=== PATIENT | male | born 1980 | race Caucasian/White ===

== ENCOUNTER 2017-07-31 05:07 | Emergency (ER) | payer BC, OTHER ==
[2017-07-31 05:14] VITALS: BP 178/99
--- NOTE | 2017-07-31 05:26 | EDM.PDOC ---
ED HPI GENERAL MEDICAL PROBLEM - General Chief Complaint: Upper Extremity Injury/Pain Stated Complaint: hand injury Time Seen by Provider: 07/31/17 05:16 Source of Information: Reports: Patient History Limitations: Reports: No Limitations - History of Present Illness INITIAL COMMENTS - FREE TEXT/NARRATIVE: The patient states that he was using a hand-held drill at work, when the drill caught, causing the drill to spin around, crushing the patient's left thumb between the drill and a steel wall, around 03:00 tonight. The patient presents with pain to the tip of his left thumb. He is otherwise uninjured. He denies prior left thumb injury. The patient does not have a PCP. Left 1-Thumb Pain Score (Numeric/FACES): 8 - Related Data Allergies Allergy/AdvReac Type Severity Reaction Status Date / Time Penicillins Allergy Anaphylactic Verified 07/31/17 05:12 Shock Home Meds: Home Meds . [No Known Home Meds] 03/11/15 [History] Past Medical History - Infectious Disease History Infectious Disease History: Reports: Chicken Pox - Past Surgical History HEENT Surgical History: Reports: Oral Surgery ([place] teeth extraction), Tonsillectomy Social & Family History - Tobacco Use Smoking Status *Q: Former Smoker Years of Tobacco use: 13 Packs/Tins Daily: 1 - Alcohol Use Alcohol Use History: Yes Days Per Week of Alcohol Use: 2 Number of Drinks Per Day: 10 Total Drinks Per Week: 20 Alcohol Use Frequency: Binges - Recreational Drug Use Recreational Drug Use: No - Living Situation & Occupation Living situation: Reports: Single, with Significant Other (Girlfriend), with Family (Daughter, stepdaughter) 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 ED EXAM, GENERAL - Physical Exam Exam: See Below Exam Limited By: No Limitations General Appearance: Alert, WD/WN, No Apparent Distress Extremities: Other (There is mild swelling to the distal phalanx of the left thumb, when compared to the right. Punctate subungual hematoma at the tip of the nail. There is hyperesthesia to the thumb pad, and generalized tenderness to the distal phalanx. Vascular status of the left thumb is intact.) Course - Vital Signs Last Recorded V/S: Last Vital Signs Temp 36.9 C 07/31/17 05:12 Pulse 87 07/31/17 05:12 Resp 18 07/31/17 05:12 BP 178/99 H 07/31/17 05:12 Pulse Ox 98 07/31/17 05:12 - Orders/Labs/Meds Orders: Active Orders 24 hr Category Date Time Status Fingers Thumb Lt FA [CR] Stat Exams 07/31/17 05:21 Taken - Re-Assessments/Exams Free Text/Narrative Re-Assessment/Exam: 07/31/17 05:26 The patient states that he drove himself to the ED. He was offered ibuprofen, but declined. 07/31/17 05:41 3-view radiographs of the left thumb appear to be normal. No fracture or dislocation identified. Formal read per the Radiologist pending. Departure - Departure Time of Disposition: 05:45 Disposition: Home, Self-Care 01 Condition: Good Clinical Impression: Contusion of left thumb - Discharge Information Referrals: PCP,None [Primary Care Provider] - Forms: ED Department Discharge Additional Instructions: You were seen in the emergency room after your left thumb was crushed at work. Workup in the ER included x-rays of your left thumb, which returned normal. Your thumb is not broken. We recommend that you take [id number] ibuprofen, 2-3 tablets (400-600 mg) every 8 hours, with food, as needed for discomfort. We also recommend that you apply an ice pack to the end of your thumb as much as possible over the next 2 days, to help minimize swelling. If any other problems, please do not hesitate to return to the ER. - My Orders Last 24 Hours: My Active Orders 07/31/17 05:21 Fingers Thumb Lt FA [CR] Stat - Assessment/Plan Last 24 Hours: My Active Orders 07/31/17 05:21 Fingers Thumb Lt FA [CR] Stat
--- NOTE | 2017-07-31 06:54 | CR ---
Left thumb: 3 views of the left thumb were obtained. Comparison: No prior study. Joint spaces are preserved. No fracture, dislocation or other bony abnormality is seen. Impression: 1. No abnormality is seen on left thumb study. Diagnostic code #1
== END 2017-07-31 05:53 | disposition home or self-care (01) ==
LOC: JD.ED 05:07
DX: S60.012A Contusion of left thumb without damage to nail, initial encounter (principal); Z88.0 Allergy status to penicillin; Z87.891 Personal history of nicotine dependence; W23.1XXA Caught, crushed, jammed, or pinched between stationary objects, initial encounter
CPT/HCPCS: 73140-26-FA; 73140-FA; 99283

== ENCOUNTER 2017-10-11 19:37 | Emergency (ER) | payer BC, OTHER ==
--- NOTE | 2017-10-11 19:46 | EDM.PDOC ---
ED HPI GENERAL MEDICAL PROBLEM - General Chief Complaint: Lower Extremity Injury/Pain Stated Complaint: RIGHT KNEE SWOLLEN HARD TIME MOVING LEG Time Seen by Provider: 10/11/17 19:45 - History of Present Illness INITIAL COMMENTS - FREE TEXT/NARRATIVE: 37-year-old male presents emergency room with worsening right knee pain. This pain started earlier today progressively getting worse requests of the right front of his knee. He has increased swelling there a lot of this is been present for quite some time but usually doesn't bother he's taken 800 mg of ibuprofen without any relief. Patient denies any recent trauma to the area he has not skinned his knee he has not bumped his knee. Right Knee Pain Score (Numeric/FACES): 10 - Related Data Allergies Allergy/AdvReac Type Severity Reaction Status Date / Time Penicillins Allergy Anaphylactic Verified 07/31/17 05:12 Shock Home Meds: Home Meds . 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[employer]) Review of Systems - Review of Systems Review Of Systems: See Below Constitutional: Reports: No Symptoms Eyes: Reports: No Symptoms Respiratory: Reports: No Symptoms Cardiovascular: Reports: No Symptoms GI/Abdominal: Reports: No Symptoms Genitourinary: Reports: No Symptoms Musculoskeletal: Reports: No Symptoms ED EXAM, GENERAL - Physical Exam Exam: See Below Exam Limited By: No Limitations General Appearance: Alert, No Apparent Distress Head: Atraumatic, Normocephalic Neck: Normal Inspection, Supple, Non-Tender, Full Range of Motion Respiratory/Chest: No Respiratory Distress, Lungs Clear, Normal Breath Sounds, No Accessory Muscle Use, Chest Non-Tender Cardiovascular: Normal Peripheral Pulses GI/Abdominal: Normal Bowel Sounds, Soft, Non-Tender, No Organomegaly, No Distention, No Abnormal Bruit, No Mass Extremities: Other (Examination reveals some swelling over the anterior tuberosity and up to the patella on the right knee there is no redness warmth associated with this is tender to palpation. ACL MCL and LCL appear to be intact there is no evidence of meniscal entrapment patient has marked tenderness around the bursa.) Course - Vital Signs Last Recorded V/S: Last Vital Signs Temp 37.2 C 10/11/17 19:48 Pulse 70 10/11/17 19:48 Resp 20 10/11/17 19:48 BP 154/108 H 10/11/17 19:48 Pulse Ox 98 10/11/17 19:48 - Orders/Labs/Meds Orders: Active Orders 24 hr Category Date Time Status Knee Min 4V Rt [CR] Stat Exams 10/11/17 19:53 Taken - Re-Assessments/Exams Free Text/Narrative Re-Assessment/Exam: 10/11/17 21:04 Patient examined acute changes on his x-ray he has some degenerative calcifications within the bursa. At this point the patient's continues nonsteroidals to be started on Lyles 08/06/24 #20 one or 2 every 6 hours as needed for pain he is first on the precautions of using this medication he is advised to follow-up with orthopedics. Departure - Departure Time of Disposition: 21:04 Disposition: Home, Self-Care 01 Clinical Impression: Prepatellar bursitis - Discharge Information Referrals: PCP,None [Primary Care Provider] - Myron Suarez MD [Physician] - Forms: ED Department Discharge Additional Instructions: Return to the emergency room with any questions problems worsening symptoms. Continue take the ibuprofen. Use the hydrocodone only as needed for more severe pain allow 12 hours after using this before driving or returning to work. Follow-up with Dr. Suarez, orthopedic surgeon - My Orders Last 24 Hours: My Active Orders 10/11/17 19:53 Knee Min 4V Rt [CR] Stat - Assessment/Plan Last 24 Hours: My Active Orders 10/11/17 19:53 Knee Min 4V Rt [CR] Stat
[2017-10-11 19:50] VITALS: BP 154/108
--- NOTE | 2017-10-12 15:29 | CR ---
Right knee: Four portable views of the right knee were obtained. Comparison: No prior knee exam. Bony densities are noted off the anterior tibial tuberosity which appear to be old. Mild soft tissue swelling is seen around the patellar ligament. No joint effusion is seen. Medial and lateral joint spaces are preserved in height. No acute bony abnormality is seen. Impression: 1. Old bony densities off the anterior tibial tuberosity. 2. Soft tissue swelling around the patellar ligament most likely due to patellar tendinitis if there are no acute symptoms to this area. Diagnostic code #3 Agree with preliminary report issued by [facility] ([facility] preliminary report dictated on 10/11/17, 9:22 PM Central Time)
== END 2017-10-11 21:12 | disposition home or self-care (01) ==
LOC: JD.ED 19:37
DX: M70.41 Prepatellar bursitis, right knee (principal); Z88.0 Allergy status to penicillin
CPT/HCPCS: 73564-26-RT; 73564-RT; 99283

== ENCOUNTER 2020-02-06 11:41 | Emergency (ER) | payer BC ==
[2020-02-06 11:53] VITALS: BP 152/105; PULSE 70
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
[2020-02-06] MEDS ORDERED: Triamcinolone Acetonide 40 MG/ML 1 ML SDV INJECT ONE (13:13)
[2020-02-06] MEDS ORDERED: Lidocaine 1% 10 ML MDV INJECT ONE (13:33)
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
== END 2020-02-06 14:21 | disposition home or self-care (01) ==
LOC: JD.ED 11:41
DX: M17.11 Unilateral primary osteoarthritis, right knee (principal); Z88.0 Allergy status to penicillin
CPT/HCPCS: 73564; 99283; J2001; 20610

== ENCOUNTER 2020-05-29 02:59 | Emergency (ER) | payer OTHER, BC ==
[2020-05-29 03:19] VITALS: BP 140/99; PULSE 66
--- NOTE | 2020-05-29 03:31 | EDM.PDOC ---
ED HPI GENERAL MEDICAL PROBLEM - General Chief Complaint: Upper Extremity Injury/Pain Stated Complaint: poss arm injury Time Seen by Provider: 05/29/20 03:10 Source of Information: Reports: Patient, RN Notes Reviewed - History of Present Illness INITIAL COMMENTS - FREE TEXT/NARRATIVE: 40 yr old male fell getting out of truck injuring L elbow yesterday afternoon. Pain worse now during the night with difficulty sleeping. No other pain or injury. There is pain at rest, worse to move arm at elbow joint. Left Elbow Pain Score (Numeric/FACES): 8 - Related Data Allergies Allergy/AdvReac Type Severity Reaction Status Date / Time Penicillins Allergy Anaphylactic Verified 05/29/20 03:10 Shock Home Meds: Home Meds . [No Known Home Meds] 05/29/20 [History] Past Medical History - Past Health History Medical/Surgical History: Denies Medical/Surgical History Musculoskeletal History: Reports: Gout, Other (See Below) Other Musculoskeletal History: R knee swelling recurrent, surgery recommended - Infectious Disease History Infectious Disease History: Reports: Chicken Pox - Past Surgical History HEENT Surgical History: Reports: Oral Surgery, Tonsillectomy Social & Family History - Tobacco Use Tobacco Use Status *Q: Unknown Ever Used Tobacco - Caffeine Use Caffeine Use: Reports: None - Living Situation & Occupation Living situation: Reports: Single, with Significant Other (Girlfriend), with Family (Daughter, stepdaughter) 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[employer]) Review of Systems - Review of Systems Review Of Systems: See Below Constitutional: Reports: No Symptoms Ears: Reports: No Symptoms Nose: Reports: No Symptoms Mouth/Throat: Reports: No Symptoms Respiratory: Denies: Shortness of Breath Cardiovascular: Denies: Chest Pain GI/Abdominal: Denies: Nausea, Vomiting Musculoskeletal: Reports: Joint Pain (L elbow) Skin: Reports: No Symptoms Neurological: Denies: Numbness, Tingling, Weakness ED EXAM, GENERAL - Physical Exam Exam: See Below General Appearance: Alert, Mild Distress Head: Atraumatic Neck: Supple Respiratory/Chest: No Respiratory Distress Extremities: Joint Swelling (very mild swelling olecranon area of elbow, no joint effusion visible, no visible deformity), Limited Range of Motion (for L elbow flexion and extension), Other (tender olecranon area of elbow) Neurological: No Motor/Sensory Deficits Course - Vital Signs Last Recorded V/S: Last Vital Signs Temp 98.2 F 05/29/20 03:07 Pulse 66 05/29/20 03:07 Resp 16 05/29/20 03:07 BP 140/99 H 05/29/20 03:07 Pulse Ox 100 05/29/20 03:07 - Orders/Labs/Meds Orders: Active Orders 24 hr Category Date Time Status Elbow Min 3V Lt [CR] Stat Exams 05/29/20 03:16 Taken DME for Discharge [COMM] Stat Oth 05/29/20 03:48 Ordered Durable Medical Equipment for Discharge [DME for Oth 05/29/20 03:48 Ordered Discharge] [COMM] Stat - Re-Assessments/Exams Free Text/Narrative Re-Assessment/Exam: 05/29/20 03:53 X rays, no visible fx Departure - Departure Time of Disposition: 03:49 Disposition: Home, Self-Care 01 Condition: Fair Clinical Impression: Fall, Elbow contusion - Discharge Information Instructions: Elbow Contusion, [id number] Referrals: PCP,None [Primary Care Provider] - Forms: ED Department Discharge, ED Return to Work/School Form Additional Instructions: Dannie wrap, L arm sling until pain resolving. Frequent ice packs today and tomorrow. Alternate ibuprofen and tylenol as needed for pain. See provider if not back to normal within 7 to 10 days as expected. Sepsis Event Note (ED) - Evaluation Sepsis Screening Result: No Definite Risk - Focused Exam Vital Signs: Vital Signs Temp Pulse Resp BP Pulse Ox 05/29/20 03:07 98.2 F 66 16 140/99 H 100 - My Orders Last 24 Hours: My Active Orders 05/29/20 03:16 Elbow Min 3V Lt [CR] Stat 05/29/20 03:48 DME for Discharge [COMM] Stat Durable Medical Equipment for Discharge [DME for Discharge] [COMM] Stat - Assessment/Plan Last 24 Hours: My Active Orders 05/29/20 03:16 Elbow Min 3V Lt [CR] Stat 05/29/20 03:48 DME for Discharge [COMM] Stat Durable Medical Equipment for Discharge [DME for Discharge] [COMM] Stat
--- NOTE | 2020-05-29 06:59 | CR ---
Left Elbow: 4 views of the left elbow were obtained. Comparison: No prior elbow study is available. No joint effusion is seen. Joint spaces are preserved. No acute fracture, dislocation or other bony abnormality is appreciated. Impression: 1. Nothing acute is appreciated on left elbow study. Diagnostic code #1
== END 2020-05-29 04:03 | disposition home or self-care (01) ==
LOC: JD.ED 02:59
DX: S50.02XA Contusion of left elbow, initial encounter (principal); Z88.0 Allergy status to penicillin; V83.9XXA Unspecified occupant of special industrial vehicle injured in nontraffic accident, initial encounter
CPT/HCPCS: 73080-26-LT; 73080-LT; 99282; 99283-25